=== PATIENT | female | born 1980 | race African-American/Black ===

== ENCOUNTER 2018-04-12 13:53 | Emergency (ER) | payer MEDICAID ==
[~2018-04-12] VITALS: Ht 162.6 cm; Wt 70.3 kg
[2018-04-12 14:21] VITALS: BP 133/81
== END 2018-04-12 14:21 | disposition home or self-care (01) ==
LOC: ED 13:53
DX: J02.9 Acute pharyngitis, unspecified (principal); H92.01 Otalgia, right ear

== ENCOUNTER 2018-06-09 00:26 | Emergency (ER) | payer MEDICAID ==
[~2018-06-09] VITALS: Ht 160 cm; Wt 71.3 kg
[2018-06-09 00:36] VITALS: BP 116/76; Ht 160 cm; Wt 71.3 kg
== END 2018-06-09 01:39 | disposition home or self-care (01) ==
LOC: ED 00:26
DX: J06.9 Acute upper respiratory infection, unspecified (principal)

== ENCOUNTER 2020-04-06 19:16 | Emergency (ER) | payer OTHER ==
[~2020-04-06] VITALS: Ht 160 cm; Wt 76.7 kg
[2020-04-06 19:43] VITALS: Ht 160 cm; Wt 76.7 kg
[2020-04-06 20:49] VITALS: BP 121/67
== END 2020-04-06 20:49 | disposition home or self-care (01) ==
LOC: ED 19:16
DX: H61.21 Impacted cerumen, right ear (principal)

== ENCOUNTER 2020-07-06 18:30 | Emergency (ER) | payer OTHER ==
[~2020-07-06] VITALS: Ht 162.6 cm; Wt 73.5 kg
[2020-07-06 18:48] VITALS: Ht 162.6 cm; Wt 73.5 kg
[2020-07-06 20:09] LABS: BASOPHIL % 0.7 % (0-2); PLATELET COUNT 340 x10^3mcL (130-400); RED CELL DISTRIBUTION WIDTH 14.4 % (11.5-14.5)
[2020-07-06 20:49] LABS: CALCIUM 8.6 mg/dL (8.5-10.1); CHLORIDE SERUM 103 mmol/L (98-107); CREATININE SERUM 0.8 mg/dL (0.6-1.0); GFR1 > 60 mL/min; GLUCOSE SERUM 81 mg/dL (74-106); POTASSIUM SERUM 3.8 mmol/L (3.5-5.1); SODIUM SERUM 137 mmol/L (136-145)
[2020-07-06 20:54] LABS: ALBUMIN 3.7 g/dL (3.4-5.0); ALKALINE PHOSPHATASE 50 U/L (46-116); ALT/SGPT 18 U/L (14-59); AST/SGOT 14 U/L (15-37); BILIRUBIN TOTAL 0.4 mg/dL (0.20-1.00); LIPASE 89 IU/L (73-393); TOTAL PROTEIN, SERUM 7.5 g/dL (6.4-8.2)
[2020-07-06 21:47] VITALS: BP 125/79
== END 2020-07-06 21:47 | disposition home or self-care (01) ==
LOC: ED 18:30
PROVIDERS: Emergency Medicine
DX: R10.84 Generalized abdominal pain (principal)